=== PATIENT | male | born 1930 | race Caucasian/White ===

== ENCOUNTER 2017-04-26 18:08 | Inpatient (IN) | payer MEDICARE, BC ==
[~2017-04-26] VITALS: Ht 167.6 cm; Wt 83.0 kg
[~2017-04-26 18:08] MED LIST: AMLO10TA2 PO; ASPI81TA5 PO; ATEN25TA PO; BENA20TA2 PO; NIAC500C3 PO; OMEP10CA4 PO; ONE-A-DAY MEN'1 EACH PO; SAWP1CAP PO; SIMV40TA5 PO; [UNRECOGNIZED DRUG - CODE] MC
[2017-04-26] MEDS ORDERED: IV NS 0.9% 1,000 ML BAG IV ONE (18:30)
[2017-04-26 18:44] LABS: EOSINOPHILS # (AUTO) 0.1 /CMM (0.0-0.7)
[2017-04-26 18:48] LABS: BASOPHILS % (AUTO) 0.1 % (0.0-2.0); EOSINOPHILS % (AUTO) 0.6 % (0.0-6.0); HEMATOCRIT 42 % (39-51); LYMPHOCYTES # (AUTO) 1.1 /CMM (0.8-4.8); LYMPHOCYTES % (AUTO) 6.3 % (20.0-44.0); MEAN CORPUSCULAR HEMOGLOBIN 31 PG (26.0-33.0); MEAN CORPUSCULAR HGB CONC 34 g/dl (31.0-36.0); MEAN CORPUSCULAR VOLUME 93 fL (80-96); MONOCYTES # (AUTO) 2.1 /CMM (0.1-1.30); MONOCYTES % (AUTO) 11.5 % (2.0-12.0); NEUTROPHILS # (AUTO) 14.6 /CMM (1.8-8.9); NEUTROPHILS % (AUTO) 81.5 % (43.0-81.0); PLATELET COUNT (AUTO) 268 /CMM (150-450); WHITE BLOOD COUNT (AUTO) 17.9 K/uL (4.3-11.0)
[2017-04-26 18:51] LABS: CALCIUM, SERUM 8.5 mg/dL (8.5-10.1); CARBON DIOXIDE 25 mmol/L (21-32); CHLORIDE 91 mmol/L (98-107); CREATININE 1.2 mg/dL (0.6-1.3); GLUCOSE 139 mg/dL (74-106); SODIUM SERUM 125 mmol/L (136-145); UREA NITROGEN, BLOOD 35 mg/dL (7-18)
[2017-04-26 18:58] LABS: ALANINE AMINOTRANSFERASE 91 U/L (12-78); ALBUMIN 2.7 g/dL (3.4-5.0); ALKALINE PHOSPHATASE 96 U/L (46-116); ASPARTATE AMINOTRANSFERASE 76 U/L (15-37); BILIRUBIN,DIRECT 0.3 mg/dL (0.0-0.2); BILIRUBIN,TOTAL 1.3 mg/dL (0.2-1.0); LIPASE 282 U/L (73-393); TOTAL PROTEIN, SERUM 6.9 g/dL (6.4-8.2)
[2017-04-26 19:02] LABS: APPEARANCE,URINE Clear (CLEAR); BILIRUBIN,URINE Negative (NEGATIVE); BLOOD, URINE Small Ery/uL (NEGATIVE); COLOR,URINE Yellow (YELLOW); KETONES,URINE Negative (NEGATIVE); LEUKOCYTE ESTERASE ,URINE Moderate (NEGATIVE); NITRITE, URINE Negative (NEGATIVE); PROTEIN,URINE 30 mg/dl (NEGATIVE); UGLUCOSE Negative (NEGATIVE); UROBILINOGEN,URINE 0.2 EU/dL (0.2)
[2017-04-26 19:30] LABS: SQUAMOUS EPITHELIAL CELL,UR Few /HPF (None Seen)
[2017-04-26 19:31] LABS: BACTERIA,URINE 3+ /HPF (None Seen); WBC,URINE 21-50 /HPF (0-3)
[2017-04-26] MEDS ORDERED: Magnesium 1GM/D5W 100ML PREMIX 100 ML IV SCH (20:00)
[2017-04-26] MEDS ORDERED: POTASSIUM CHLORIDE 20 MEQ TAB.PRT.SR PO ONE ×2 (20:00→20:15)
[2017-04-26] MEDS ORDERED: POTASSIUM CL. PREMIX PERIPHER. 50 ML IV SCH (20:00)
[2017-04-26] MEDS ORDERED: METRONIDAZOLE 500MG/ NS 100ML 100 ML IV ONE (20:00)
[2017-04-26] MEDS ORDERED: CIPROFLOXACIN IV RTU 400 MG in PREMIX 1 EA IV SCH (20:00)
[2017-04-26 21:00] VITALS: BP 143/83
[2017-04-26] MEDS ORDERED: LEVOFLOXACIN 500 MG /D5W 100ML 500 MG in PREMIX 1 EA IV ONE (21:00)
[2017-04-26] MEDS: Potassium Chloride 20 MEQ in IV D5/ 0.9% NACL 1,000 ML IV PRN (21:26)
[2017-04-26] MEDS: ENOXAPARIN SODIUM 40 MG/0.4 ML DISP.SYRIN SQ SCH (21:27)
[2017-04-27] MEDS: MORPHINE SULFATE INJ 2 MG/ML DISP.SYRIN IV PRN ×2 (00:12→14:11)
[2017-04-27 04:00] VITALS: BP 116/53
[2017-04-27] MEDS: PANTOPRAZOLE 40 MG VIAL IV SCH (05:54)
[2017-04-27] MEDS: ACETAMINOPHEN 325 MG TABLET PO PRN ×3 (06:09→21:37)
[2017-04-27 06:37] LABS: BASOPHILS % (AUTO) 0.1 % (0.0-2.0); EOSINOPHILS # (AUTO) 0.1 /CMM (0.0-0.7); EOSINOPHILS % (AUTO) 0.5 % (0.0-6.0); HEMATOCRIT 37 % (39-51); HEMOGLOBIN 12.5 g/dL (13.5-17.5); LYMPHOCYTES % (AUTO) 5.7 % (20.0-44.0); MEAN CORPUSCULAR HEMOGLOBIN 32 PG (26.0-33.0); MEAN CORPUSCULAR HGB CONC 34 g/dl (31.0-36.0); MEAN CORPUSCULAR VOLUME 95 fL (80-96); MONOCYTES # (AUTO) 1.6 /CMM (0.1-1.30); MONOCYTES % (AUTO) 9.4 % (2.0-12.0); NEUTROPHILS # (AUTO) 14.8 /CMM (1.8-8.9); NEUTROPHILS % (AUTO) 84.3 % (43.0-81.0); PLATELET COUNT (AUTO) 274 /CMM (150-450); RDW COEFFICIENT OF VARIATION 14.7 (11.5-15.0); RED BLOOD CELL COUNT(AUTO) 3.91 MIL/uL (4.5-6.0); WHITE BLOOD COUNT (AUTO) 17.5 K/uL (4.3-11.0)
[2017-04-27 06:53] LABS: CALCIUM, SERUM 8.1 mg/dL (8.5-10.1); CARBON DIOXIDE 26 mmol/L (21-32); CHLORIDE 101 mmol/L (98-107); GLUCOSE 148 mg/dL (74-106); MAGNESIUM 2.2 mg/dL (1.8-2.4); PHOSPHORUS 2.5 mg/dL (2.5-4.9); POTASSIUM 3.5 mmol/L (3.5-5.1); SODIUM SERUM 135 mmol/L (136-145); UREA NITROGEN, BLOOD 21 mg/dL (7-18)
[2017-04-27 08:00] VITALS: BP 136/69
[2017-04-27 09:08] LABS: BAND % (MANUAL) 7 % (0.0-5.0); EOSINOPHILS % (MANUAL) 1 % (0-4); LYMPHOCYTES % (MANUAL) 5 % (16-48); MONOCYTES % (MANUAL) 9 % (0-11.0); NEUTROPHILS % (MANUAL) 78 (42-76)
[2017-04-27] MEDS: ASPIRIN EC 81 MG TABLET.DR PO SCH (09:10)
[2017-04-27] MEDS: MAGNESIUM OXIDE 400 MG TABLET PO SCH ×2 (09:10→16:39)
[2017-04-27] MEDS: MULTIVITAMINS,THERAGRAN 1 UDTAB TABLET PO SCH (09:10)
[2017-04-27] MEDS: ATENOLOL 25 MG TABLET PO SCH ×2 (09:11→16:40)
[2017-04-27] MEDS: AMLODIPINE BESYLATE 10 MG TABLET PO SCH (09:11)
[2017-04-27] MEDS: BENAZEPRIL HCL 20 MG TABLET PO SCH (09:12)
[2017-04-27] MEDS: Potassium Chloride 20 MEQ in IV D5/ 0.9% NACL 1,000 ML IV PRN ×2 (11:40→21:48)
[2017-04-27] MEDS: METRONIDAZOLE 500MG/ NS 100ML 500 MG in PREMIX 1 EA IV SCH ×2 (14:11→21:43)
[2017-04-27 16:00] VITALS: BP 130/71
[2017-04-27 20:00] VITALS: BP 110/62
[2017-04-27] MEDS ORDERED: METRONIDAZOLE 500MG/ NS 100ML 500 MG in PREMIX 1 EA IV SCH (21:00)
[2017-04-27] MEDS: ENOXAPARIN SODIUM 40 MG/0.4 ML DISP.SYRIN SQ SCH (21:36)
[2017-04-27] MEDS: ATORVASTATIN 10 MG TABLET PO SCH (21:37)
[2017-04-27] MEDS ORDERED: SIMVASTATIN 40 MG TABLET PO SCH (22:00)
[2017-04-27] MEDS ORDERED: ATORVASTATIN 10 MG TABLET PO SCH (22:00)
[2017-04-28] MEDS: METRONIDAZOLE 500MG/ NS 100ML 500 MG in PREMIX 1 EA IV SCH ×3 (04:26→20:05)
[2017-04-28] MEDS: PANTOPRAZOLE 40 MG VIAL IV SCH (05:38)
[2017-04-28 07:16] LABS: EOSINOPHILS # (AUTO) 0.2 /CMM (0.0-0.7); EOSINOPHILS % (AUTO) 0.6 % (0.0-6.0); HEMATOCRIT 38 % (39-51); HEMOGLOBIN 12.3 g/dL (13.5-17.5); LYMPHOCYTES # (AUTO) 1.2 /CMM (0.8-4.8); LYMPHOCYTES % (AUTO) 4.3 % (20.0-44.0); MEAN CORPUSCULAR HEMOGLOBIN 31 PG (26.0-33.0); MEAN CORPUSCULAR HGB CONC 33 g/dl (31.0-36.0); MEAN CORPUSCULAR VOLUME 96 fL (80-96); MONOCYTES # (AUTO) 0.3 /CMM (0.1-1.30); NEUTROPHILS % (AUTO) 94.1 % (43.0-81.0); PLATELET COUNT (AUTO) 309 /CMM (150-450); RED BLOOD CELL COUNT(AUTO) 3.93 MIL/uL (4.5-6.0); WHITE BLOOD COUNT (AUTO) 27.6 K/uL (4.3-11.0)
[2017-04-28 07:41] LABS: CALCIUM, SERUM 8.2 mg/dL (8.5-10.1); CARBON DIOXIDE 21 mmol/L (21-32); CHLORIDE 101 mmol/L (98-107); CREATININE 1.1 mg/dL (0.6-1.3); GLUCOSE 154 mg/dL (74-106); MAGNESIUM 1.8 mg/dL (1.8-2.4); POTASSIUM 3.8 mmol/L (3.5-5.1); SODIUM SERUM 132 mmol/L (136-145); UREA NITROGEN, BLOOD 17 mg/dL (7-18)
[2017-04-28 08:00] VITALS: BP 125/65
[2017-04-28] MEDS: MAGNESIUM OXIDE 400 MG TABLET PO SCH ×2 (08:10→16:18)
[2017-04-28] MEDS: AMLODIPINE BESYLATE 10 MG TABLET PO SCH (08:11)
[2017-04-28] MEDS: ASPIRIN EC 81 MG TABLET.DR PO SCH (08:11)
[2017-04-28] MEDS: ATENOLOL 25 MG TABLET PO SCH ×2 (08:12→16:19)
[2017-04-28] MEDS: BENAZEPRIL HCL 20 MG TABLET PO SCH (08:12)
[2017-04-28] MEDS: MULTIVITAMINS,THERAGRAN 1 UDTAB TABLET PO SCH (08:14)
[2017-04-28 09:54] LABS: BAND % (MANUAL) 9 % (0.0-5.0); EOSINOPHILS % (MANUAL) 1 % (0-4); LYMPHOCYTES % (MANUAL) 2 % (16-48); MONOCYTES % (MANUAL) 5 % (0-11.0); NEUTROPHILS % (MANUAL) 83 (42-76)
[2017-04-28 11:27] LABS: ABG BASE EXCESS -1.8 mmol/L; ABG OXYGEN SATURATION 81.8 % (92.0-98.5); ABG PCO2 26.5 mmHg (35.0-45.0); ABG PH 7.495 (7.350-7.450); ABG PO2 44.2 mmHg (75.0-100.0); AaDO2 73.8 mmHg; COHb 0.3 % (0.5-1.5); MetHb 0.6 % (0.0-1.5); O2Hb 81.1 % (94.0-97.0); SITE, ABG Right Radial
[2017-04-28] MEDS ORDERED: ALBUTEROL FS 2.5 MG/3 ML VIAL.NEB NEB PRN (13:00)
[2017-04-28] MEDS: methylPREDNISolone SOD SUCC 40 MG/ML VIAL IV SCH ×2 (13:10→16:18)
[2017-04-28] MEDS: LEVOFLOXACIN 750 MG /D5W 150ML 750 MG in PREMIX 1 EA IV SCH (14:33)
[2017-04-28 15:34] LABS: IRON, SERUM 17 ug/dl (50-175); TOTAL IRON BINDING CAPACITY 208 ug/dl (250-450)
[2017-04-28 20:00] VITALS: BP 118/62
[2017-04-28] MEDS: Potassium Chloride 20 MEQ in IV D5/ 0.9% NACL 1,000 ML IV PRN (20:05)
[2017-04-28] MEDS: ATORVASTATIN 10 MG TABLET PO SCH (21:57)
[2017-04-28] MEDS: ENOXAPARIN SODIUM 40 MG/0.4 ML DISP.SYRIN SQ SCH (21:58)
[2017-04-29 04:00] VITALS: BP 134/66
[2017-04-29] MEDS: METRONIDAZOLE 500MG/ NS 100ML 500 MG in PREMIX 1 EA IV SCH ×3 (05:12→21:17)
[2017-04-29] MEDS: PANTOPRAZOLE 40 MG VIAL IV SCH (06:50)
[2017-04-29 06:52] LABS: BASOPHILS # (AUTO) 0.1 /CMM (0.0-0.2); BASOPHILS % (AUTO) 0.3 % (0.0-2.0); HEMATOCRIT 38 % (39-51); LYMPHOCYTES # (AUTO) 0.8 /CMM (0.8-4.8); LYMPHOCYTES % (AUTO) 3.2 % (20.0-44.0); MEAN CORPUSCULAR HEMOGLOBIN 32 PG (26.0-33.0); MEAN CORPUSCULAR HGB CONC 34 g/dl (31.0-36.0); MEAN CORPUSCULAR VOLUME 94 fL (80-96); MONOCYTES # (AUTO) 0.8 /CMM (0.1-1.30); NEUTROPHILS % (AUTO) 93.5 % (43.0-81.0); PLATELET COUNT (AUTO) 371 /CMM (150-450); RDW COEFFICIENT OF VARIATION 15.1 (11.5-15.0); RED BLOOD CELL COUNT(AUTO) 4.08 MIL/uL (4.5-6.0); WHITE BLOOD COUNT (AUTO) 25.7 K/uL (4.3-11.0)
[2017-04-29 07:21] LABS: CALCIUM, SERUM 8.5 mg/dL (8.5-10.1); CARBON DIOXIDE 20 mmol/L (21-32); CHLORIDE 103 mmol/L (98-107); GLUCOSE 179 mg/dL (74-106); MAGNESIUM 1.9 mg/dL (1.8-2.4); PHOSPHORUS 2.8 mg/dL (2.5-4.9); POTASSIUM 4.6 mmol/L (3.5-5.1); SODIUM SERUM 134 mmol/L (136-145); UREA NITROGEN, BLOOD 17 mg/dL (7-18)
[2017-04-29 08:00] VITALS: BP 122/64
[2017-04-29] MEDS: MAGNESIUM OXIDE 400 MG TABLET PO SCH ×2 (09:19→17:29)
[2017-04-29] MEDS: methylPREDNISolone SOD SUCC 40 MG/ML VIAL IV SCH (09:19)
[2017-04-29] MEDS: ASPIRIN EC 81 MG TABLET.DR PO SCH (09:19)
[2017-04-29] MEDS: MULTIVITAMINS,THERAGRAN 1 UDTAB TABLET PO SCH (09:19)
[2017-04-29] MEDS: AMLODIPINE BESYLATE 10 MG TABLET PO SCH (09:20)
[2017-04-29] MEDS: ATENOLOL 25 MG TABLET PO SCH ×2 (09:20→17:29)
[2017-04-29] MEDS: BENAZEPRIL HCL 20 MG TABLET PO SCH (09:21)
[2017-04-29 09:43] LABS: BAND % (MANUAL) 4 % (0.0-5.0); LYMPHOCYTES % (MANUAL) 1 % (16-48); MONOCYTES % (MANUAL) 5 % (0-11.0); NEUTROPHILS % (MANUAL) 90 (42-76)
[2017-04-29] MEDS: Potassium Chloride 20 MEQ in IV D5/ 0.9% NACL 1,000 ML IV PRN (12:50)
[2017-04-29 16:00] VITALS: BP 109/45
[2017-04-29] MEDS ORDERED: LACTOBACILLUS RHAMNOSUS GG 1 EACH CAP.SPRINK PO SCH (17:00)
[2017-04-29 20:00] VITALS: BP 129/73
[2017-04-29] MEDS: ATORVASTATIN 10 MG TABLET PO SCH (21:16)
[2017-04-29] MEDS: ENOXAPARIN SODIUM 40 MG/0.4 ML DISP.SYRIN SQ SCH (21:17)
[2017-04-29] MEDS: ACETAMINOPHEN 325 MG TABLET PO PRN (23:07)
[2017-04-30] MEDS: Potassium Chloride 20 MEQ in IV D5/ 0.9% NACL 1,000 ML IV PRN (03:13)
[2017-04-30] MEDS: PANTOPRAZOLE 40 MG VIAL IV SCH (05:32)
[2017-04-30] MEDS: METRONIDAZOLE 500MG/ NS 100ML 500 MG in PREMIX 1 EA IV SCH ×3 (05:32→21:31)
[2017-04-30 07:12] LABS: BASOPHILS % (AUTO) 0.1 % (0.0-2.0); EOSINOPHILS # (AUTO) 0.2 /CMM (0.0-0.7); EOSINOPHILS % (AUTO) 0.7 % (0.0-6.0); HEMATOCRIT 36 % (39-51); HEMOGLOBIN 12.1 g/dL (13.5-17.5); LYMPHOCYTES # (AUTO) 1.3 /CMM (0.8-4.8); LYMPHOCYTES % (AUTO) 5.5 % (20.0-44.0); MEAN CORPUSCULAR HEMOGLOBIN 32 PG (26.0-33.0); MEAN CORPUSCULAR HGB CONC 34 g/dl (31.0-36.0); MEAN CORPUSCULAR VOLUME 95 fL (80-96); MONOCYTES # (AUTO) 1.2 /CMM (0.1-1.30); MONOCYTES % (AUTO) 5.2 % (2.0-12.0); NEUTROPHILS # (AUTO) 21.2 /CMM (1.8-8.9); NEUTROPHILS % (AUTO) 88.5 % (43.0-81.0); PLATELET COUNT (AUTO) 408 /CMM (150-450); RDW COEFFICIENT OF VARIATION 15.6 (11.5-15.0); RED BLOOD CELL COUNT(AUTO) 3.79 MIL/uL (4.5-6.0)
[2017-04-30 07:32] LABS: CALCIUM, SERUM 8.3 mg/dL (8.5-10.1); CARBON DIOXIDE 24 mmol/L (21-32); CHLORIDE 107 mmol/L (98-107); CREATININE 1.1 mg/dL (0.6-1.3); GLUCOSE 169 mg/dL (74-106); MAGNESIUM 1.8 mg/dL (1.8-2.4); PHOSPHORUS 2.6 mg/dL (2.5-4.9); POTASSIUM 4.9 mmol/L (3.5-5.1); SODIUM SERUM 138 mmol/L (136-145); UREA NITROGEN, BLOOD 19 mg/dL (7-18)
[2017-04-30 08:00] VITALS: BP_SYST 115; BP_SYST 127; BP_DIAS 66
[2017-04-30] MEDS: ASPIRIN EC 81 MG TABLET.DR PO SCH (09:08)
[2017-04-30] MEDS: MAGNESIUM OXIDE 400 MG TABLET PO SCH ×2 (09:08→16:54)
[2017-04-30] MEDS: AMLODIPINE BESYLATE 10 MG TABLET PO SCH (09:08)
[2017-04-30] MEDS: MULTIVITAMINS,THERAGRAN 1 UDTAB TABLET PO SCH (09:08)
[2017-04-30] MEDS: ATENOLOL 25 MG TABLET PO SCH ×2 (09:09→16:54)
[2017-04-30] MEDS: BENAZEPRIL HCL 20 MG TABLET PO SCH (09:09)
[2017-04-30] MEDS: LEVOFLOXACIN 750 MG /D5W 150ML 750 MG in PREMIX 1 EA IV SCH ×2 (14:00→14:30)
[2017-04-30 16:00] VITALS: BP 118/68
[2017-04-30] MEDS: ACETAMINOPHEN 325 MG TABLET PO PRN ×2 (16:54→23:01)
[2017-04-30 20:00] VITALS: BP 111/72
[2017-04-30] MEDS: ENOXAPARIN SODIUM 40 MG/0.4 ML DISP.SYRIN SQ SCH (21:31)
[2017-04-30] MEDS: ATORVASTATIN 10 MG TABLET PO SCH (21:32)
[2017-05-01] MEDS: METRONIDAZOLE 500MG/ NS 100ML 500 MG in PREMIX 1 EA IV SCH (05:13)
[2017-05-01] MEDS: PANTOPRAZOLE 40 MG VIAL IV SCH (06:21)
[2017-05-01] MEDS ORDERED: MENTHOL/CETYLPYRD (CEPACOL) 1 LOZ LOZENGE PO PRN (06:30)
[2017-05-01 06:52] LABS: CALCIUM, SERUM 8.4 mg/dL (8.5-10.1); CARBON DIOXIDE 26 mmol/L (21-32); CHLORIDE 105 mmol/L (98-107); CREATININE 0.9 mg/dL (0.6-1.3); GLUCOSE 113 mg/dL (74-106); MAGNESIUM 1.6 mg/dL (1.8-2.4); POTASSIUM 4.6 mmol/L (3.5-5.1); SODIUM SERUM 138 mmol/L (136-145); UREA NITROGEN, BLOOD 15 mg/dL (7-18)
[2017-05-01 06:54] LABS: EOSINOPHILS # (AUTO) 0.2 /CMM (0.0-0.7); EOSINOPHILS % (AUTO) 1.1 % (0.0-6.0); HEMATOCRIT 38 % (39-51); HEMOGLOBIN 12.9 g/dL (13.5-17.5); LYMPHOCYTES # (AUTO) 1.7 /CMM (0.8-4.8); LYMPHOCYTES % (AUTO) 8.7 % (20.0-44.0); MEAN CORPUSCULAR HEMOGLOBIN 32 PG (26.0-33.0); MEAN CORPUSCULAR HGB CONC 34 g/dl (31.0-36.0); MEAN CORPUSCULAR VOLUME 95 fL (80-96); MONOCYTES # (AUTO) 1.5 /CMM (0.1-1.30); MONOCYTES % (AUTO) 7.7 % (2.0-12.0); NEUTROPHILS # (AUTO) 16.2 /CMM (1.8-8.9); NEUTROPHILS % (AUTO) 82.5 % (43.0-81.0); PLATELET COUNT (AUTO) 466 /CMM (150-450); RDW COEFFICIENT OF VARIATION 15.4 (11.5-15.0); RED BLOOD CELL COUNT(AUTO) 4.01 MIL/uL (4.5-6.0); WHITE BLOOD COUNT (AUTO) 19.6 K/uL (4.3-11.0)
[2017-05-01 08:00] VITALS: BP 127/72
[2017-05-01] MEDS: ATENOLOL 25 MG TABLET PO SCH ×2 (09:14→16:13)
[2017-05-01] MEDS: BENAZEPRIL HCL 20 MG TABLET PO SCH (09:14)
[2017-05-01] MEDS: MAGNESIUM OXIDE 400 MG TABLET PO SCH ×2 (09:14→16:13)
[2017-05-01] MEDS: MULTIVITAMINS,THERAGRAN 1 UDTAB TABLET PO SCH (09:14)
[2017-05-01] MEDS: ASPIRIN EC 81 MG TABLET.DR PO SCH (09:14)
[2017-05-01] MEDS: AMLODIPINE BESYLATE 10 MG TABLET PO SCH (09:14)
[2017-05-01] MEDS: Z GUARD REMEDY 4 OZ OINT TP PRN ×2 (09:22→16:18)
[2017-05-01] MEDS ORDERED: FUROSEMIDE 20 MG/2 ML VIAL IV ONE (09:30)
[2017-05-01] MEDS: Magnesium 1GM/D5W 100ML PREMIX 100 ML IV SCH ×2 (09:51→12:23)
[2017-05-01] MEDS: CEFAZOLIN 1 GM in IV NS 0.9% 50 ML IV SCH ×2 (10:51→21:39)
[2017-05-01 12:00] VITALS: BP 118/64
[2017-05-01] MEDS ORDERED: LOPERAMIDE HCL (2 MG CAP) 2 MG CAPSULE PO PRN (15:00)
[2017-05-01 20:00] VITALS: BP 118/62
[2017-05-01] MEDS: ATORVASTATIN 10 MG TABLET PO SCH (21:40)
[2017-05-01] MEDS: ENOXAPARIN SODIUM 40 MG/0.4 ML DISP.SYRIN SQ SCH (21:43)
[2017-05-01] MEDS: TAMSULOSIN 0.4 MG CAP.SR.24H PO SCH (23:06)
[2017-05-02 04:00] VITALS: BP 118/56
[2017-05-02] MEDS: CEFAZOLIN 1 GM in IV NS 0.9% 50 ML IV SCH ×3 (04:30→21:31)
[2017-05-02] MEDS: PANTOPRAZOLE 40 MG VIAL IV SCH (05:30)
[2017-05-02 07:20] LABS: BASOPHILS % (AUTO) 0.1 % (0.0-2.0); EOSINOPHILS # (AUTO) 0.2 /CMM (0.0-0.7); HEMATOCRIT 39 % (39-51); HEMOGLOBIN 13.2 g/dL (13.5-17.5); LYMPHOCYTES # (AUTO) 1.5 /CMM (0.8-4.8); LYMPHOCYTES % (AUTO) 6.8 % (20.0-44.0); MEAN CORPUSCULAR HEMOGLOBIN 32 PG (26.0-33.0); MEAN CORPUSCULAR HGB CONC 34 g/dl (31.0-36.0); MEAN CORPUSCULAR VOLUME 95 fL (80-96); MONOCYTES # (AUTO) 1.2 /CMM (0.1-1.30); MONOCYTES % (AUTO) 5.5 % (2.0-12.0); NEUTROPHILS # (AUTO) 18.6 /CMM (1.8-8.9); NEUTROPHILS % (AUTO) 86.6 % (43.0-81.0); PLATELET COUNT (AUTO) 467 /CMM (150-450); RDW COEFFICIENT OF VARIATION 15.3 (11.5-15.0); RED BLOOD CELL COUNT(AUTO) 4.12 MIL/uL (4.5-6.0); WHITE BLOOD COUNT (AUTO) 21.5 K/uL (4.3-11.0)
[2017-05-02 07:34] LABS: CALCIUM, SERUM 8.4 mg/dL (8.5-10.1); CARBON DIOXIDE 28 mmol/L (21-32); CHLORIDE 102 mmol/L (98-107); CREATININE 0.9 mg/dL (0.6-1.3); GLUCOSE 125 mg/dL (74-106); MAGNESIUM 1.7 mg/dL (1.8-2.4); POTASSIUM 4.2 mmol/L (3.5-5.1); SODIUM SERUM 137 mmol/L (136-145); UREA NITROGEN, BLOOD 11 mg/dL (7-18)
[2017-05-02 08:00] VITALS: BP 110/66
[2017-05-02] MEDS: MAGNESIUM OXIDE 400 MG TABLET PO SCH ×2 (08:15→17:00)
[2017-05-02] MEDS: MULTIVITAMINS,THERAGRAN 1 UDTAB TABLET PO SCH (08:15)
[2017-05-02] MEDS: ASPIRIN EC 81 MG TABLET.DR PO SCH (08:15)
[2017-05-02] MEDS: AMLODIPINE BESYLATE 10 MG TABLET PO SCH (08:16)
[2017-05-02] MEDS: BENAZEPRIL HCL 20 MG TABLET PO SCH (08:16)
[2017-05-02] MEDS: ATENOLOL 25 MG TABLET PO SCH ×2 (09:00→17:00)
[2017-05-02] MEDS ORDERED: FUROSEMIDE 20 MG/2 ML VIAL IV ONE (12:30)
[2017-05-02] MEDS: Magnesium 1GM/D5W 100ML PREMIX 100 ML IV SCH ×2 (12:39→14:55)
[2017-05-02 20:00] VITALS: BP 128/67
[2017-05-02] MEDS: ATORVASTATIN 10 MG TABLET PO SCH (21:31)
[2017-05-02] MEDS: TAMSULOSIN 0.4 MG CAP.SR.24H PO SCH (21:31)
[2017-05-02] MEDS: ENOXAPARIN SODIUM 40 MG/0.4 ML DISP.SYRIN SQ SCH (21:32)
[2017-05-03 04:00] VITALS: BP 135/66
[2017-05-03] MEDS: CEFAZOLIN 1 GM in IV NS 0.9% 50 ML IV SCH ×3 (04:27→21:30)
[2017-05-03] MEDS: PANTOPRAZOLE 40 MG VIAL IV SCH (06:01)
[2017-05-03 06:55] LABS: EOSINOPHILS # (AUTO) 0.6 /CMM (0.0-0.7); EOSINOPHILS % (AUTO) 3.2 % (0.0-6.0); HEMATOCRIT 37 % (39-51); HEMOGLOBIN 12.2 g/dL (13.5-17.5); LYMPHOCYTES # (AUTO) 1.4 /CMM (0.8-4.8); LYMPHOCYTES % (AUTO) 7.3 % (20.0-44.0); MEAN CORPUSCULAR HEMOGLOBIN 32 PG (26.0-33.0); MEAN CORPUSCULAR HGB CONC 34 g/dl (31.0-36.0); MEAN CORPUSCULAR VOLUME 94 fL (80-96); MONOCYTES # (AUTO) 1.2 /CMM (0.1-1.30); MONOCYTES % (AUTO) 6.1 % (2.0-12.0); NEUTROPHILS # (AUTO) 16.2 /CMM (1.8-8.9); NEUTROPHILS % (AUTO) 83.4 % (43.0-81.0); PLATELET COUNT (AUTO) 457 /CMM (150-450); RDW COEFFICIENT OF VARIATION 15.3 (11.5-15.0); RED BLOOD CELL COUNT(AUTO) 3.87 MIL/uL (4.5-6.0); WHITE BLOOD COUNT (AUTO) 19.5 K/uL (4.3-11.0)
[2017-05-03 07:06] LABS: CALCIUM, SERUM 8.4 mg/dL (8.5-10.1); CARBON DIOXIDE 32 mmol/L (21-32); CHLORIDE 102 mmol/L (98-107); CREATININE 1.1 mg/dL (0.6-1.3); GLUCOSE 113 mg/dL (74-106); POTASSIUM 4.3 mmol/L (3.5-5.1); SODIUM SERUM 137 mmol/L (136-145); UREA NITROGEN, BLOOD 11 mg/dL (7-18)
[2017-05-03 08:00] VITALS: BP 132/61
[2017-05-03] MEDS ORDERED: FUROSEMIDE 20 MG/2 ML VIAL IV ONE (08:00)
[2017-05-03] MEDS: AMLODIPINE BESYLATE 10 MG TABLET PO SCH (08:19)
[2017-05-03] MEDS: ASPIRIN EC 81 MG TABLET.DR PO SCH (08:19)
[2017-05-03] MEDS: MAGNESIUM OXIDE 400 MG TABLET PO SCH ×2 (08:19→16:42)
[2017-05-03] MEDS: MULTIVITAMINS,THERAGRAN 1 UDTAB TABLET PO SCH (08:19)
[2017-05-03] MEDS: BENAZEPRIL HCL 20 MG TABLET PO SCH (08:19)
[2017-05-03] MEDS: ATENOLOL 25 MG TABLET PO SCH ×2 (08:20→16:43)
[2017-05-03 09:37] LABS: ABG BASE EXCESS 3.5 mmol/L; ABG OXYGEN SATURATION 90.4 % (92.0-98.5); ABG PCO2 34.2 mmHg (35.0-45.0); ABG PH 7.504 (7.350-7.450); ABG PO2 58.8 mmHg (75.0-100.0); COHb 0.1 % (0.5-1.5); MetHb 0.8 % (0.0-1.5); O2Hb 89.6 % (94.0-97.0); SITE, ABG Left Radial; VENT MODE, BG ROOM AIR
[2017-05-03] MEDS: ACETAMINOPHEN 325 MG TABLET PO PRN ×2 (14:32→22:29)
[2017-05-03 16:00] VITALS: BP 84/47
[2017-05-03] MEDS: MORPHINE SULFATE INJ 10 MG/ML DISP.SYRIN IV PRN (16:24)
[2017-05-03 20:00] VITALS: BP 103/54
[2017-05-03] MEDS: ATORVASTATIN 10 MG TABLET PO SCH (21:24)
[2017-05-03] MEDS: TAMSULOSIN 0.4 MG CAP.SR.24H PO SCH (21:24)
[2017-05-03] MEDS: ENOXAPARIN SODIUM 40 MG/0.4 ML DISP.SYRIN SQ SCH (21:27)
[2017-05-04 04:00] VITALS: BP 104/67
[2017-05-04] MEDS: CEFAZOLIN 1 GM in IV NS 0.9% 50 ML IV SCH (05:41)
[2017-05-04] MEDS: PANTOPRAZOLE 40 MG VIAL IV SCH (05:41)
[2017-05-04 06:49] LABS: BASOPHILS % (AUTO) 0.2 % (0.0-2.0); EOSINOPHILS # (AUTO) 0.5 /CMM (0.0-0.7); EOSINOPHILS % (AUTO) 3.2 % (0.0-6.0); HEMATOCRIT 36 % (39-51); HEMOGLOBIN 12.1 g/dL (13.5-17.5); LYMPHOCYTES # (AUTO) 1.4 /CMM (0.8-4.8); MEAN CORPUSCULAR HEMOGLOBIN 32 PG (26.0-33.0); MEAN CORPUSCULAR HGB CONC 34 g/dl (31.0-36.0); MEAN CORPUSCULAR VOLUME 95 fL (80-96); MONOCYTES % (AUTO) 6.8 % (2.0-12.0); NEUTROPHILS # (AUTO) 11.4 /CMM (1.8-8.9); NEUTROPHILS % (AUTO) 79.8 % (43.0-81.0); PLATELET COUNT (AUTO) 449 /CMM (150-450); RDW COEFFICIENT OF VARIATION 15.1 (11.5-15.0); RED BLOOD CELL COUNT(AUTO) 3.77 MIL/uL (4.5-6.0); WHITE BLOOD COUNT (AUTO) 14.3 K/uL (4.3-11.0)
[2017-05-04 06:59] LABS: CALCIUM, SERUM 8.5 mg/dL (8.5-10.1); CARBON DIOXIDE 33 mmol/L (21-32); CHLORIDE 104 mmol/L (98-107); CREATININE 1.1 mg/dL (0.6-1.3); GLUCOSE 117 mg/dL (74-106); POTASSIUM 5.2 mmol/L (3.5-5.1); SODIUM SERUM 140 mmol/L (136-145); UREA NITROGEN, BLOOD 12 mg/dL (7-18)
[2017-05-04 08:00] VITALS: BP 112/67
[2017-05-04] MEDS: ATENOLOL 25 MG TABLET PO SCH ×2 (08:49→17:45)
[2017-05-04] MEDS: MAGNESIUM OXIDE 400 MG TABLET PO SCH ×2 (08:50→17:32)
[2017-05-04] MEDS: BENAZEPRIL HCL 20 MG TABLET PO SCH (08:50)
[2017-05-04] MEDS: MULTIVITAMINS,THERAGRAN 1 UDTAB TABLET PO SCH (08:50)
[2017-05-04] MEDS: AMLODIPINE BESYLATE 10 MG TABLET PO SCH (08:50)
[2017-05-04] MEDS: ASPIRIN EC 81 MG TABLET.DR PO SCH (08:50)
[2017-05-04] MEDS ORDERED: FUROSEMIDE 20 MG/2 ML VIAL IV ONE (09:00)
[2017-05-04] MEDS: ACETAMINOPHEN 325 MG TABLET PO PRN ×2 (11:23→17:33)
[2017-05-04] MEDS: MORPHINE SULFATE INJ 10 MG/ML DISP.SYRIN IV PRN (11:25)
[2017-05-04] MEDS ORDERED: CEFAZOLIN 1 GM in IV NS 0.9% 50 ML IV SCH (13:00)
[2017-05-04] MEDS ORDERED: ANCEF 1 GM/50 ML D5W IV SCH ×2 (13:00)
[2017-05-04 16:00] VITALS: BP 91/49
[2017-05-04 17:45] VITALS: BP 128/86
== END 2017-05-04 19:35 | disposition home health service (06) | DRG 871 ==
LOC: ER 18:10 → MEDSG1 20:14
PROVIDERS: ADMIT Legal Medicine; ATTEND Legal Medicine
DX: A41.9 Sepsis, unspecified organism (principal); J96.21 Acute and chronic respiratory failure with hypoxia; I11.0 Hypertensive heart disease with heart failure; J15.9 Unspecified bacterial pneumonia; I50.9 Heart failure, unspecified; J44.0 Chronic obstructive pulmonary disease with (acute) lower respiratory infection; D63.8 Anemia in other chronic diseases classified elsewhere; N39.0 Urinary tract infection, site not specified; E87.1 Hypo-osmolality and hyponatremia; J44.1 Chronic obstructive pulmonary disease with (acute) exacerbation; N13.8 Other obstructive and reflux uropathy; E87.6 Hypokalemia; E78.5 Hyperlipidemia, unspecified; K21.9 Gastro-esophageal reflux disease without esophagitis; N40.1 Benign prostatic hyperplasia with lower urinary tract symptoms; Z87.891 Personal history of nicotine dependence; Z98.61 Coronary angioplasty status; B96.20 Unspecified Escherichia coli [E. coli] as the cause of diseases classified elsewhere; K57.30 Diverticulosis of large intestine without perforation or abscess without bleeding; K80.20 Calculus of gallbladder without cholecystitis without obstruction
CPT/HCPCS: 36415; 36600; 71010-TC; 76705-TC; 80048-TC; 80074; 80076-TC; 81000-TC; 82272-TC; 82803-TC; 82962-TC; 83540-TC; 83690-TC; 83735-TC; 84100-TC; 85025-TC; 87081-TC; 87086-TC; 87177; 87186-TC; 87209; 92611-TC; 97110-TC; 97116-TC; 97530-TC; A4216; A4217; A4606; A6402; C9113; J0690; J0744; J1650; J1940; J1956; J2270; J2920; J3475; J3480; J3490; J7030; J7042; J7050; J7060

== ENCOUNTER 2018-10-22 16:10 | Emergency (ER) | payer MEDICARE, BC ==
[~2018-10-22] VITALS: Ht 165.1 cm; Wt 69.9 kg
[~2018-10-22 16:10] MED LIST changes: -AMLO10TA2 PO; +AMLO10TA7 PO; -BENA20TA2 PO; +BENA20TA9 PO; -OMEP10CA4 PO; -SAWP1CAP PO
[2018-10-22 18:01] VITALS: BP 125/71
--- NOTE | 2018-10-22 18:02 | NUR ---
Patient discharged to home in stable condition. Written and verbal after care instructions given. Patient verbalizes understanding of instruction.
== END 2018-10-22 18:02 | disposition home or self-care (01) ==
LOC: ER 16:10
DX: S01.511A Laceration without foreign body of lip, initial encounter (principal); I11.0 Hypertensive heart disease with heart failure; I50.9 Heart failure, unspecified; K21.9 Gastro-esophageal reflux disease without esophagitis; Z95.818 Presence of other cardiac implants and grafts; Z60.2 Problems related to living alone; Z79.82 Long term (current) use of aspirin; Z79.899 Other long term (current) drug therapy; W01.0XXA Fall on same level from slipping, tripping and stumbling without subsequent striking against object, initial encounter; Y93.01 Activity, walking, marching and hiking; Y92.89 Other specified places as the place of occurrence of the external cause; Y99.8 Other external cause status

== ENCOUNTER 2019-01-25 10:48 | Emergency (ER) | payer MEDICARE, BC ==
[~2019-01-25] VITALS: Ht 165.1 cm; Wt 74.4 kg
[2019-01-25 10:56] VITALS: BP 178/81
--- NOTE | 2019-01-25 11:06 | NUR ---
SEEN AND EXAMINED BY .
[2019-01-25] MEDS ORDERED: CARV6.252 PO (11:23)
[2019-01-25] MEDS ORDERED: FURO-145 PO (11:23)
[2019-01-25] MEDS ORDERED: MULT-24 PO (11:23)
[2019-01-25] MEDS ORDERED: POTA20TA83 PO (11:23)
[2019-01-25] MEDS ORDERED: POTA10TA15 PO (11:23)
[2019-01-25] MEDS ORDERED: ATOR10TA PO (11:23)
[2019-01-25] MEDS ORDERED: OMEP20CA11 PO (11:23)
[2019-01-25] MEDS ORDERED: TAMS-12 PO (11:23)
[2019-01-25] MEDS ORDERED: LISI-603 PO (11:23)
[2019-01-25] MEDS ORDERED: FURO-144 PO (11:23)
[2019-01-25] MEDS ORDERED: APIX2.5T PO (11:23)
[2019-01-25] MEDS ORDERED: VIT1CAPS27 PO (11:25)
--- NOTE | 2019-01-25 11:47 | NUR ---
Patient discharged to home in stable condition. Written and verbal after care instructions given. Patient verbalizes understanding of instruction.
== END 2019-01-25 11:50 | disposition home or self-care (01) ==
LOC: ER 10:51
DX: I11.0 Hypertensive heart disease with heart failure (principal); I48.91 Unspecified atrial fibrillation; I50.9 Heart failure, unspecified; K21.9 Gastro-esophageal reflux disease without esophagitis; Z95.818 Presence of other cardiac implants and grafts; Z79.899 Other long term (current) drug therapy

== ENCOUNTER 2019-03-04 00:26 | Emergency (ER) | payer MEDICARE, BC ==
[~2019-03-04] VITALS: Ht 160 cm; Wt 68.0 kg
[~2019-03-04 00:26] MED LIST changes: -AMLO10TA7 PO; +APIX2.5T PO; -ASPI81TA5 PO; -ATEN25TA PO; +ATOR10TA PO; -BENA20TA9 PO; +CARV6.252 PO; +FURO-144 PO; +FURO-145 PO; +LISI-603 PO; +MULT-24 PO; -NIAC500C3 PO; +OMEP20CA11 PO; -ONE-A-DAY MEN'1 EACH PO; +POTA10TA15 PO; +POTA20TA83 PO; -SIMV40TA5 PO; +TAMS-12 PO; +VIT1CAPS27 PO; -[UNRECOGNIZED DRUG - CODE] MC
--- NOTE | 2019-03-04 00:50 | NUR ---
bibs for evaluation of high BP,. -h/a, -n/v, - dizziness. current BP: 162/108. pt was placed on a monitor,
[2019-03-04 01:49] VITALS: BP 143/63
--- NOTE | 2019-03-04 01:49 | NUR ---
Patient discharged to home in stable condition. Written and verbal after care instructions given. Patient verbalizes understanding of instruction.
== END 2019-03-04 01:50 | disposition home or self-care (01) ==
LOC: ER 00:28
DX: I11.0 Hypertensive heart disease with heart failure (principal); I50.9 Heart failure, unspecified; I48.91 Unspecified atrial fibrillation; K21.9 Gastro-esophageal reflux disease without esophagitis; N40.0 Benign prostatic hyperplasia without lower urinary tract symptoms; Z95.818 Presence of other cardiac implants and grafts; Z60.2 Problems related to living alone; Z79.899 Other long term (current) drug therapy

== ENCOUNTER 2019-05-10 18:15 | Emergency (ER) | payer MEDICARE, BC ==
[~2019-05-10] VITALS: Ht 165.1 cm; Wt 68.0 kg
[~2019-05-10 18:15] MED LIST changes: -OMEP20CA11 PO; +OMEP20CA15 PO
[2019-05-10 18:59] VITALS: BP 146/81
--- NOTE | 2019-05-10 19:05 | NUR ---
Pt came into the ed c/o GLF "was going into driveway holding groceries-fell hurt scraped knee and busted lip" @1630 today. Pt states he did not hit his head. -headache, bruise on r knee noted, minimal lip bleed. Pt aaox4, vss, breathing even and unlabored on room air. Pt connected to the monitor.
--- NOTE | 2019-05-10 19:19 | NUR ---
Report given to ARTHUR Joel
[2019-05-10] MEDS ORDERED: LIDOCAINE 1%-EPI 1:100,000 20 ML VIAL ONE (19:55)
[2019-05-10] MEDS ORDERED: LIDOCAINE 1%-EPI 1:100,000 50 ML VIAL IJ ONE (20:00)
== END 2019-05-10 20:56 | disposition home or self-care (01) ==
LOC: ER 18:16
DX: S01.511A Laceration without foreign body of lip, initial encounter (principal); S80.211A Abrasion, right knee, initial encounter; I25.10 Atherosclerotic heart disease of native coronary artery without angina pectoris; I11.0 Hypertensive heart disease with heart failure; I50.9 Heart failure, unspecified; K21.9 Gastro-esophageal reflux disease without esophagitis; N40.0 Benign prostatic hyperplasia without lower urinary tract symptoms; Z95.5 Presence of coronary angioplasty implant and graft; Z60.2 Problems related to living alone; Z79.899 Other long term (current) drug therapy; W01.198A Fall on same level from slipping, tripping and stumbling with subsequent striking against other object, initial encounter; Y93.01 Activity, walking, marching and hiking; Y92.89 Other specified places as the place of occurrence of the external cause; Y99.8 Other external cause status
CPT/HCPCS: 96374; 99283; A6403; J3490 ×2